=== PATIENT | male | born 1950 | race Hispanic/Latino ===

== ENCOUNTER 2019-08-10 11:48 | Day surgery (SDC) | payer OTHER ==
[2019-08-08 15:11] VITALS: BP 114/69
[2019-08-08 15:28] LABS: BASOPHILS % (AUTO) 1.1 % (0.0-5.0); EOSINOPHILS % (AUTO) 3.9 % (0.0-8.0); HEMATOCRIT 33.6 % (42-54); LYMPHOCYTES % (AUTO) 16.3 % (21.0-51.0); MEAN CORPUSCULAR HEMOGLOBIN 31.3 pg (27.0-33.0); MEAN CORPUSCULAR HGB CONC 34.1 g/dL (32.0-36.0); MEAN CORPUSCULAR VOLUME 91.7 fL (79-99); MONOCYTES % (AUTO) 10.3 % (3.0-13.0); NEUTROPHILS % (AUTO) 68.4 % (40.0-77.0); NUCLEATED RED BLOOD CELLS 0.1 % (0.0-0.19); PLATELET COUNT (AUTO) 399 K/uL (130-400); RED BLOOD CELL COUNT(AUTO) 3.66 MIL/uL (4.50-6.20); RED CELL DISTRIBUTION WIDTH 15.2 % (11.0-15.5); WHITE BLOOD COUNT (AUTO) 6.3 K/uL (4.8-10.8)
[2019-08-08 15:29] LABS: APPEARANCE,URINE Clear (CLEAR); BILIRUBIN,URINE Negative (NEGATIVE); COLOR,URINE Yellow (YELLOW); GLUCOSE, URINE (UA) Negative (NEGATIVE); KETONES,URINE Negative (NEGATIVE); LEUKOCYTE ESTERASE ,URINE Negative (NEGATIVE); NITRATE,URINE Negative (NEGATIVE); OCCULT BLOOD,URINE Negative (NEGATIVE); PROTEIN,URINE Negative (NEGATIVE); UROBILINOGEN,URINE 0.2 mg/dL (0.2-1.0)
[2019-08-08 15:38] LABS: CREATININE 0.8 mg/dL (0.5-1.5)
[2019-08-08 15:41] LABS: INR 0.94 (0.85-1.15); PARTIAL THROMBOPLASTIN TIME 26.6 SEC (26.3-35.5); PROTHROMBIN TIME 9.9 SEC (9.6-11.6)
--- NOTE | 2019-08-08 16:40 | NUR ---
LAB CALLED TO GIVE CRITICAL RESULT OF POTASSIUM OF 3.0, CALLED DOCTOR FINGERS OFFICE TO REPORT SPOKE TO KAREN AND SHE STATED THAT THE NURSE IS NOT AVAILABLE BUT THE DOCTOR WAS INSIDE A ROOM WHEN HE WOULD COME OUT SHE WOULD LET HIM KNOW, I FAXED [facility]. NO RESPONSE NO NEW ORDERS CALLED BACK
--- NOTE | 2019-08-09 13:45 | NUR ---
POTASSIUM REPLACEMENT DR. ALMONTE'S OFFICE STAFF CALLED, SPOKE TO LESLEY VERGARA ON 08/09/19 AT 1210, STATED PT IS ALREADY STARTED ON POTASSIUM REPLACEMENT PER DR. ALMONTE.
[~2019-08-10] VITALS: Ht 175.3 cm; Wt 76.9 kg
[2019-08-10] VITALS (24 sets, daily range): BP systolic 110–144; BP diastolic 65–89
[~2019-08-10 11:48] MED LIST: AMLO10TA7 PO; ASPI-1026 PO; CEFTRIAXONE SODIUM 1 GM IVP ONE; CHOL400C9 PO; ESOM20CA31 PO; FOLI0.8T PO; GABA-531 PO; GENTAMICIN SULFATE 390 MG in SODIUM CHLORIDE 0.9% 100 ML IV PRN; IRON PO; LISI1TAB29 PO; LORA1TAB3 PO; METH2.5T6 PO; MULT-1192 PO; PRED5TAB PO; ROPI1TAB11 PO; SILO8CAP6 PO; SIMV20TA6 PO; TRAM50TA4 PO; TYLENOL PO; VENL-63 PO
[2019-08-10] MEDS ORDERED: GENTAMICIN SULFATE IV PRN (13:15)
[2019-08-10] MEDS ORDERED: SODIUM CHLORIDE 0.9% IV PRN (13:15)
[2019-08-10] MEDS ORDERED: LACTATED RINGERS 1000ML 1,000 ML IV ONE (13:30)
[2019-08-10] MEDS ORDERED: SODIUM CHLORIDE 0.9% 1000ML 0 ML IV ONE (13:30)
[2019-08-10] MEDS ORDERED: CEFTRIAXONE SODIUM 1 GM ONE (13:30)
[2019-08-10] MEDS ORDERED: HYDROCORTISONE SOD SUCCINATE 100 MG/2 ML VIAL ONE (13:52)
[2019-08-10] MEDS ORDERED: LIDOCAINE PF 2% 5ML ABBOJECT ONE (14:06)
[2019-08-10] MEDS ORDERED: SUCCINYLCHOLINE 200MG/10ML SYR ONE (14:06)
[2019-08-10] MEDS ORDERED: DEXAMETHASONE SOD PHOSPHATE 10MG/ML 1ML VIAL ONE ×2 (14:06→14:11)
[2019-08-10] MEDS ORDERED: GLYCOPYRROLATE 1 MG/5 ML SYRINGE ONE (14:07)
[2019-08-10] MEDS ORDERED: ONDANSETRON HCL 4 MG/2 ML VIAL ONE (14:07)
[2019-08-10] MEDS ORDERED: PROPOFOL 10 MG/ML 20ML VIAL IV ONE (14:07)
[2019-08-10] MEDS ORDERED: MIDAZOLAM HCL 1 MG/ML 2ML VIAL ONE (14:07)
[2019-08-10] MEDS ORDERED: NEOSTIGMINE 5MG/5ML SYR IV ONE (14:08)
[2019-08-10] MEDS ORDERED: FENTANYL CITRATE PF 50 MCG/1 ML 2ML VIAL ONE ×2 (14:08→16:00)
[2019-08-10] MEDS ORDERED: ROCURONIUM 10MG/1ML SYR 10 MG/ML ML ONE (14:08)
[2019-08-10] MEDS ORDERED: POTA99TA25 PO (14:15)
[2019-08-10] MEDS ORDERED: EPHEDRINE SULFATE 50 MG/ML AMPULE ONE (15:20)
[2019-08-10] MEDS ORDERED: MEPERIDINE-PF 25 MG/ML SYG ONE (17:40)
--- NOTE | 2019-08-10 19:05 | NUR ---
DR. GAGE BENNETT. CALLED BACK. INFORMED PT HAVING PAIN AND REQUESTING PT BE ADMITTED FOR PAIN CONTROL. RATES A 8 ON PAIN SCALE. ORDERS RECEIVED TO HAVE PT TAKE HIS HOME MED TRAMADOL FOR PAIN CONTROL AND HE WILL NOT ADMIT PT. PT TO REPORT TO HIS OFFICE IN AM FOR PEREZ REMOVAL. INFORMED PT AND PTS OF DR. SCRUGGS ORDERS. PT TOOK HIS TRAMADOL FROM HOME MED BOTTLE.
== END 2019-08-10 20:50 | disposition home or self-care (01) ==
LOC: DAH 11:48
PROVIDERS: ATTEND Urology
DX: N40.1 Benign prostatic hyperplasia with lower urinary tract symptoms (principal); N39.41 Urge incontinence; N32.89 Other specified disorders of bladder; I10 Essential (primary) hypertension; Z88.0 Allergy status to penicillin; Z98.890 Other specified postprocedural states; Z96.652 Presence of left artificial knee joint
CPT/HCPCS: 36415 ×2; 52648; 71045; 80048; 81003; 84132; 85025; 85610; 85730; 87088; 93005; 96365; A4215; A4221; A4222; A4223; A4354; A4358; A4452; A4600; A4663; A6260; J0330; J0696; J1100 ×2; J1580; J1720; J2001; J2175; J2250; J2405; J2704; J2710; J3010 ×2; J3490 ×2; J7120 ×2; J7030

== ENCOUNTER → 2020-07-03 | Outpatient (CLI) | payer OTHER ==
[~2020-07-03] MED LIST changes: -CEFTRIAXONE SODIUM 1 GM IVP ONE; -GENTAMICIN SULFATE 390 MG in SODIUM CHLORIDE 0.9% 100 ML IV PRN; +POTA99TA25 PO; -ROPI1TAB11 PO; +ROPI1TAB13 PO; +SIMV-43 PO; -SIMV20TA6 PO
== END | disposition home or self-care (01) ==
LOC: RAH 16:08
PROVIDERS: ATTEND Family Medicine
DX: J44.9 Chronic obstructive pulmonary disease, unspecified (principal); M47.814 Spondylosis without myelopathy or radiculopathy, thoracic region; I70.0 Atherosclerosis of aorta; R63.4 Abnormal weight loss
CPT/HCPCS: 71046

== ENCOUNTER 2023-08-29 16:56 | Emergency (ER) | payer MEDICARE, OTHER ==
[~2023-08-29] VITALS: Ht 172.7 cm; Wt 83.9 kg
[~2023-08-29 16:56] MED LIST changes: +AMLO-258 PO; -AMLO10TA7 PO; -FOLI0.8T PO; +FOLI0.8T3 PO; -LISI1TAB29 PO; +LISI1TAB53 PO; -ROPI1TAB13 PO; +ROPI1TAB46 PO
[2023-08-29] MEDS ORDERED: MORPHINE 2 MG SYG IVP ONE (20:00)
[2023-08-29] MEDS ORDERED: ONDANSETRON 4MG INJ IVP ONE (20:00)
[2023-08-29 20:05] VITALS: BP 142/82; PULSE 69; RESP 20; O2SAT 96
== END 2023-08-29 20:30 | disposition home or self-care (01) ==
LOC: EDH 16:56
DX: M60.9 Myositis, unspecified (principal); Z79.82 Long term (current) use of aspirin; Z79.899 Other long term (current) drug therapy; Z98.890 Other specified postprocedural states; Z88.0 Allergy status to penicillin
CPT/HCPCS: 99285; 96374; 71045; 96375; 82550; 83874; 84484; 36415; 93005; J2270; J2405